=== PATIENT | male | born 1970 | race Caucasian/White ===

== ENCOUNTER 2020-10-03 08:47 | Emergency (ER) | payer OTHER, SELFPAY ==
--- NOTE | ~2020-10-03 | XR_ITS ---
EXAMINATION: XR ribs RT 2V w CXR 2V DATE: 10/03/2020 09:40 INDICATION: Right rib pain. TECHNIQUE: Frontal and lateral views of the chest and 3 views of the right ribs were obtained. COMPARISON: None. FINDINGS: CHEST TWO VIEWS: There is mild atelectasis in left lower lung zone. No pleural effusion or pneumothor ax. The heart size is normal. RIGHT RIBS: There is a fracture of right ninth rib. IMPRESSION: 1. Right ninth rib fracture. Reviewed, dictated and finalized at location A. OBIOLOGY INSTRUCTOR
[2020-10-03 08:58] VITALS: BP 112/77; PULSE 91; RESP 12; TEMP 36.4; O2SAT 98
--- NOTE | 2020-10-03 09:02 | ECG_ITS ---
Measurements Intervals [place] Rate: 84 P: 34 AR: 167 QRS: 39 QRSD: 94 T: 54 QT: 362 QTc: 429 Interpretive Statements SINUS RHYTHM DELAYED PRECORDIAL R/S TRANSITION NONSPECIFIC ST ELEVATION IN DIFFUSE LEADS BASELINE ARTIFACT- I, II, III, AVR, AVL BORDERLINE ECG Electronically Signed On 10-03-2020 10:04:40 PRODUCTION MATERIAL COORDINATOR by Moo Hou D.O.
[2020-10-03 09:20] VITALS: PULSE 89; RESP 20; O2SAT 98
[2020-10-03 09:29] LABS: Basophils Absolute Auto 0.1 K/mm3 (0.0-0.1); Basophils Percent Auto 0.9 % (0.2-1.2); Eosinophils Absolute Auto 0.2 K/mm3 (0-0.3); Eosinophils Percent Auto 2.2 % (0-4.4); Hematocrit 42.9 % (42.0-52.0); Hemoglobin 15.3 g/dL (14.0-18.0); Immature Granulocyte Absolute 0.04 K/mm3 (0.00-0.031); Immature Granulocyte Percent A 0.5 % (0-0.5); Lymphocytes Absolute Auto 2.63 K/mm3 (0.9-3.2); Lymphocytes Percent Auto 33.8 % (18.3-44.2); Mean Corpuscular HGB Conc 35.7 g/dl (32-36); Mean Corpuscular Hemoglobin 31.1 pg (26-34); Mean Corpuscular Volume 87.2 fl (80-100); Mean Platelet Volume 8.5 fl (7.4-10.4); Monocytes Absolute Auto 0.8 K/mm3 (0.1-0.6); Monocytes Percent Auto 9.8 % (2.6-8.5); Neutrophils Absolute Auto 4.1 K/mm3 (1.3-6.7); Neutrophils Percent Auto 52.8 % (45.5-73.1); Platelet Count Result 298 k/mm3 (150-375); Red Blood Count 4.92 M/mm3 (4.6-6.20); Red Cell Distribution Width 12.4 % (11.5-14.5); White Blood Count 7.8 K/mm3 (4.5-10.0)
--- NOTE | 2020-10-03 09:36 | ED.GENADULT ---
HPI - General Adult General Chief complaint: Fall Stated complaint: Fall/Back Pain Time Seen by Provider: 10/03/20 08:51 History of Present Illness HPI narrative: Patient is a 50-year-old male who presents ER with concerns of rib fracture. Patient reports he was in the shower last night when he slipped and fell landing on the edge of the shower on his right side. He had sudden onset pain. He went to sleep and woke up this morning pain was persistent and severe. Worse with deep breath and movement. Reports he is sitting on the couch and apparently had loss of consciousness according to his which also prompted evaluation at the ER. Denies any chest pain or chest pressure or difficulty breathing. No runny nose/sore throat/productive cough. No striking the head or syncope last night. Related Data Allergies Allergy/AdvReac Type Severity Reaction Status Date / Time No Known Drug Allergies Allergy Unknown Other Verified 07/12/20 15:09 Review of Systems Review of Systems: All systems reviewed & are unremarkable except as noted in HPI and below Constitutional: Constitutional: Denies chills, Denies fever(s) and Denies weakness ENT: Denies nasal congestion and Denies sore throat Cardiovascular: Cardiovascular: Denies chest pain and Denies radiating jaw, neck or arm pain Comments: Rib pain right side posteriorly Respiratory: Respiratory: Denies cough and Denies dyspnea Neurologic: Reports syncope PMFSH Past Medical History Medical History (Updated 10/03/20 @ 10:14 by Ric Avendaño MD) Essential (primary) hypertension Surgical History Surgical History (Updated 10/03/20 @ 09:37 by Ric Avendaño MD) No pertinent past surgical history Family History Family History Mother Family history of osteoporosis Father Carcinoma of colon, Onset Age: 72 Patient's father is , Onset Age: 72 Social History Social History Smoking status: Never smoker Second hand tobacco smoke exposure: No Alcohol intake: current Gender identity (if verbalized by the patient): Male Exam Narrative: Exam Narrative: GENERAL: Well-appearing, well-nourished, and in no acute distress. HEAD: Normocephalic, atraumatic. CHEST: Clear to auscultation. No respiratory distress. Tender palpation right posterior chest wall inferior to scapula over the ribs. HEART: Regular rate and rhythm. Normal peripheral pulses. EXTREMITIES: Normal range of motion. No edema. SKIN: Warm, dry, no rash. NEURO: Alert and oriented x3. PSYCH: Normal mood and affect. Course Course Emergency Course: Patient informed of results. Declined morphine but will accept [place]. Discharge home. Respiratory therapy came in did I-S teaching. Vital Signs Vital signs: Vital Signs Temperature 97.6 F 10/03/20 08:58 Pulse Rate 91 10/03/20 08:58 Respiratory Rate 12 10/03/20 08:58 Blood Pressure 112/77 10/03/20 08:58 Pulse Oximetry 98 10/03/20 08:58 Temperature 97.6 F 10/03/20 08:58 Pulse Rate 91 10/03/20 08:58 Respiratory Rate 12 10/03/20 09:45 Blood Pressure 112/77 10/03/20 08:58 Pulse Oximetry 99 10/03/20 09:45 Medical Decision Making Vital Signs Vital Signs: Vital Signs Temperature 97.6 F 10/03/20 08:58 Pulse Rate 91 10/03/20 08:58 Respiratory Rate 12 10/03/20 08:58 Blood Pressure 112/77 10/03/20 08:58 Pulse Oximetry 98 10/03/20 08:58 Temperature 97.6 F 10/03/20 08:58 Pulse Rate 91 10/03/20 08:58 Respiratory Rate 12 10/03/20 09:45 Blood Pressure 112/77 10/03/20 08:58 Pulse Oximetry 99 10/03/20 09:45 Lab Data Result diagrams: 10/03/20 09:16 10/03/20 09:16 Labs: Lab Results 10/03/20 10/03/20 Range/Units 09:16 09:16 WBC 7.8 (4.5-10.0) K/mm3 RBC 4.92 (4.6-6.20) M/mm3 Hgb 15.3 (14.0-18.0) g/dL Hct
[2020-10-03] MEDS: SODIUM CHLORIDE 0.9% IV 1,000 ML 999 ML IV CONT (09:44)
[2020-10-03 09:45] VITALS: RESP 12; O2SAT 99
[2020-10-03 09:49] LABS: Anion Gap 13 mmol/L (8-16); Blood Urea Nitrogen 15 mg/dL (9-20); Calcium 9.4 mg/dL (8.4-10.2); Carbon Dioxide 22 mmol/L (22-30); Chloride 103 mmol/L (98-107); Estimated CRCL calculation 89 ml/min; Estimated Glomerular Filt Rate > 60; Glucose 127 mg/dL (75-110); Sodium 138 mmol/L (137-145)
[2020-10-03] MEDS: HYDROcodone/acetaminophen (*CRX) 5-325 MG TABLET 1 TAB PO (10:06)
[2020-10-03 10:10] VITALS: BP 129/91; PULSE 88; RESP 14; O2SAT 99
== END 2020-10-03 10:35 | disposition home or self-care (01) ==
PROVIDERS: Emergency Provider Emergency Medicine; PCP Internal Medicine
DX: S22.31XA Fracture of one rib, right side, initial encounter for closed fracture (principal); I10 Essential (primary) hypertension; W18.2XXA Fall in (into) shower or empty bathtub, initial encounter
CPT/HCPCS: 36415; 71046; 71100; 80048; 85025; 93005; 96360; 99283; A9270; J7030

== ENCOUNTER 2023-03-10 13:27 | Emergency (ER) | payer BC, SELFPAY ==
--- NOTE | ~2023-03-10 | XR_ITS ---
EXAMINATION: XR ribs LT 2V w CXR 2V DATE: 03/10/2023 14:12 INDICATION: Left rib pain. Fall. TECHNIQUE: Frontal and lateral views of the chest and 2 views on 4 degrees of the left ribs were obta ined. COMPARISON: Chest radiograph 10/03/2020 FINDINGS: CHEST TWO VIEWS: There is mild atelectasis in left lower lung zone. No pleural effusion or pneumothor ax. The heart size is normal. LEFT RIBS: There are fractures of left sixth and seventh ribs. IMPRESSION: 1. Fractures of left sixth and seventh ribs. Reviewed, dictated and finalized at location A.
[2023-03-10 13:34] VITALS: BP 136/88; PULSE 57; RESP 16; TEMP 36.6; O2SAT 100
[2023-03-10] MEDS: HYDROcodone/acetaminophen (*CRX) 5-325 MG TABLET 1 TAB PO (14:12)
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
== END 2023-03-10 14:41 | disposition home or self-care (01) ==
PROVIDERS: Emergency Provider Emergency Medicine; PCP Internal Medicine
DX: S22.42XA Multiple fractures of ribs, left side, initial encounter for closed fracture (principal); I10 Essential (primary) hypertension; Z87.891 Personal history of nicotine dependence; V18.4XXA Pedal cycle driver injured in noncollision transport accident in traffic accident, initial encounter; Y93.55 Activity, bike riding
CPT/HCPCS: 71046; 71100; 99283; A9270